=== PATIENT | male | born 1930 | race Caucasian/White ===

== ENCOUNTER 2017-08-02 08:07 | Emergency (ER) | payer MEDICARE, OTHER ==
[~2017-08-02] VITALS: Ht 182.9 cm; Wt 77.1 kg
[~2017-08-02 08:07] MED LIST: ALBU90OI6 INH; AMOX500 PO; HYDACE5 PO; LAVAP4L PO; LEVFLO500 PO; ONDA4 PO; OXYACE5T PO; PROCODE120 PO; PROSTATE MED; TAMS.4ER PO; TIMDOROPSO; TIMO.25OPS BOTHEYES; [UNRECOGNIZED DRUG - REMARK]
[2017-08-02] MEDS ORDERED: Alphagan P5 ML BOTHEYES (08:26)
[2017-08-02] MEDS ORDERED: BISA5EC PO (08:26)
[2017-08-02] MEDS ORDERED: LATANOPROST2.5 ML (08:26)
[2017-08-02] MEDS ORDERED: Golytely Solu4000 ML PO (08:46)
== END 2017-08-02 09:07 | disposition home or self-care (01) ==
LOC: ER 08:07
DX: K59.00 Constipation, unspecified (principal); Z79.899 Other long term (current) drug therapy; Z87.891 Personal history of nicotine dependence
CPT/HCPCS: 74018; 99283

== ENCOUNTER → 2018-02-26 | Outpatient (CLI) | payer MEDICARE, OTHER ==
[~2018-02-26] MED LIST changes: +Alphagan P5 ML BOTHEYES; +BISA5EC PO; +Golytely Solu4000 ML PO; +LATANOPROST2.5 ML
== END | disposition home or self-care (01) ==
LOC: LAB SHORT 17:13 → LAB 17:13
DX: L08.9 Local infection of the skin and subcutaneous tissue, unspecified (principal)
CPT/HCPCS: 87070; 87077; 87147; 87186; 87205

== ENCOUNTER 2018-07-15 10:26 | Emergency (ER) | payer MEDICARE, OTHER ==
[~2018-07-15] VITALS: Ht 182.9 cm; Wt 77.1 kg
[2018-07-15] MEDS ORDERED: Alphagan P 5ML5 ML (10:43)
[2018-07-15] MEDS ORDERED: Dorzolamide-Tim10 ML (10:43)
[2018-07-15 11:47] LABS: BASOPHILS ABSOLUTE AUTO 0.03 K/mm3 (0.00-0.23); BASOPHILS PERCENT AUTO 0 % (0-2); EOSINOPHILS ABSOLUTE AUTO 0.08 K/mm3 (0.00-0.68); EOSINOPHILS PERCENT AUTO 1 % (0-6); Hemoglobin 13.9 g/dL (13.5-17.5); IMMATURE GRAN ABSOLUTE AUTO 0.03 K/mm3 (0.00-0.10); IMMATURE GRAN PERCENT AUTO 0 % (0-1); LYMPHOCYTES PERCENT AUTO 10 % (21-46); MONOCYTES ABSOLUTE AUTO 0.52 K/mm3 (0.16-1.47); MONOCYTES PERCENT AUTO 8 % (4-13); Mean Corpuscular HGB 32.3 pg (26.0-34.0); Mean Corpuscular HGB Conc 33.1 g/dL (31.5-36.5); Mean Corpuscular Volume 98 fL (80-100); Mean Platelet Volume 9.7 fL (9.1-12.4); NEUTROPHILS ABSOLUTE AUTO 5.58 K/mm3 (1.96-9.15); NEUTROPHILS PERCENT AUTO 80 % (41-73); NRBC ABSOLUTE 0.02 K/mm3 (0.00-0.02); NRBC Auto 0.3 /100 WBC (0.0-0.2); Platelet Count 163 K/mm3 (150-400); RDW Coefficient Variation 15.5 % (11.7-14.2); RDW Standard Deviation 54.1 fL (35.1-46.3); White Blood Cell Count 6.94 K/mm3 (4.00-11.30)
[2018-07-15 12:00] LABS: Alanine Aminotransfer (ALT/SGP 24 U/L (12-78); Albumin, Blood 3.4 g/dL (3.4-5.0); Alk Phos 74 U/L (50-136); Anion Gap 5 mmol/L (6-16); Aspartate Aminotrans (AST/SGOT 30 U/L (12-37); Bilirubin, Total 0.6 mg/dL (0.1-1.0); Blood Urea Nitrogen 13 mg/dL (8-24); Bun/Creatinine Ratio 12.3 (12.0-20.0); CO2, Blood 27 mmol/L (21-32); Chloride, Blood 106 mmol/L (98-108); Creatinine, Blood 1.06 mg/dL (0.60-1.20); Globulin, Blood 3.4 g/dL (2.2-4.0); Glomerular Filtration Rate >60 (60-); Glucose, Blood 122 mg/dL (70-99); Potassium, Blood 4.2 mmol/L (3.5-5.5); Sodium, Blood 138 mmol/L (136-145); Total Protein, Blood 6.8 g/dL (6.4-8.2); Troponin I <0.015 ng/mL (0.000-0.040)
== END 2018-07-15 13:29 | disposition home or self-care (01) ==
LOC: ER 10:26
PROVIDERS: Physician Assistant
DX: S20.211A Contusion of right front wall of thorax, initial encounter (principal); S50.311A Abrasion of right elbow, initial encounter; R00.1 Bradycardia, unspecified; R42 Dizziness and giddiness; Z87.891 Personal history of nicotine dependence; Z98.890 Other specified postprocedural states; W10.9XXA Fall (on) (from) unspecified stairs and steps, initial encounter
CPT/HCPCS: 36415; 71101; 80053; 84484; 85025; 93005; 93010; 99284-25